=== PATIENT | female | born 1985 | race Hispanic/Latino ===

== ENCOUNTER 2018-11-10 05:55 | Day surgery (SDC) | payer BC ==
[2018-11-08 12:55] VITALS: BP 100/65
[2018-11-08 13:19] LABS: BASOPHILS % (AUTO) 0.7 % (0.0-5.0); EOSINOPHILS % (AUTO) 1.9 % (0.0-8.0); HEMATOCRIT 41.4 % (36-48); LYMPHOCYTES % (AUTO) 29.7 % (21.0-51.0); MEAN CORPUSCULAR HEMOGLOBIN 29.4 pg (27.0-33.0); MEAN CORPUSCULAR VOLUME 86.4 fL (79-99); MONOCYTES % (AUTO) 9.5 % (3.0-13.0); NEUTROPHILS % (AUTO) 58.2 % (40.0-77.0); NUCLEATED RED BLOOD CELLS 0.1 % (0.0-0.19); PLATELET COUNT (AUTO) 248 K/uL (130-400); WHITE BLOOD COUNT (AUTO) 9.2 K/uL (4.8-10.8)
[~2018-11-10] VITALS: Ht 149.9 cm; Wt 62.4 kg
[2018-11-10] VITALS (17 sets, daily range): BP systolic 89–107; BP diastolic 44–74
[2018-11-10] MEDS ORDERED: LACTATED RINGERS 1000ML 1,000 ML IV ONE (06:15)
[2018-11-10] MEDS ORDERED: CEFAZOLIN SODIUM 1 GM VIAL ONE (06:15)
[2018-11-10] MEDS ORDERED: CLINDAMYCIN 600 MG/D5% WATER 50 ML IV ONE (06:57)
[2018-11-10] MEDS ORDERED: CALDOLOR 800MG+NS 250ML 250 ML IV SCH (07:00)
[2018-11-10] MEDS ORDERED: MIDAZOLAM HCL 1 MG/ML 2ML VIAL ONE (07:06)
[2018-11-10] MEDS ORDERED: LIDOCAINE PF 2% 5ML ABBOJECT ONE (07:06)
[2018-11-10] MEDS ORDERED: DEXAMETHASONE SOD PHOSPHATE 10MG/ML 1ML VIAL ONE (07:06)
[2018-11-10] MEDS ORDERED: ONDANSETRON HCL 4 MG/2 ML VIAL ONE (07:07)
[2018-11-10] MEDS ORDERED: FENTANYL CITRATE PF 50 MCG/1 ML 2ML VIAL ONE (07:07)
[2018-11-10] MEDS ORDERED: PROPOFOL 10 MG/ML 20ML VIAL IV ONE (07:07)
[2018-11-10] MEDS ORDERED: EPHEDRINE SULFATE 50 MG/ML AMPULE ONE (07:14)
[2018-11-10] MEDS ORDERED: CEFAZOLIN SODIUM 1 GM VIAL IVP ONE (08:00)
[2018-11-10] MEDS ORDERED: LACTATED RINGERS 1000ML 1,000 ML IV SCH (08:00)
--- NOTE | 2018-11-10 09:00 | NUR ---
ASSESSMENT RECEIVED PT FROM PACU STAFF JT MENDES. PT [id number]. MARITO PAD IN PLACE WITH SCANT BLEEDING NOTED TO PAD. DENIES ANY PAIN AT THIS TIME. AT BEDSIDE.
--- NOTE | 2018-11-10 09:40 | NUR ---
DISCHARGE ORAL AND WRITTEN DISCHARGE INSTRUCTIONS GIVEN TO PT AND PTS . INSTRUCTED PT ON IMPORTANCE OF PICKING UP MEDICATIONS THAT WERE CALLED BY DR. THOMPSON, VERBALIZED UNDERSTANDING. MARITO PAD IN PLACE. NO OTHER QUESTIONS AT THIS TIME.
== END 2018-11-10 09:45 | disposition home or self-care (01) ==
LOC: DAH 05:55
PROVIDERS: ATTEND Obstetrics & Gynecology
DX: N84.0 Polyp of corpus uteri (principal); N92.1 Excessive and frequent menstruation with irregular cycle; Z88.0 Allergy status to penicillin; Z98.890 Other specified postprocedural states; Z98.51 Tubal ligation status
CPT/HCPCS: 36415; 58563; 85025; 86850; 86900; 86901; 88305; A4215; A4221; A4222; A4223; A4351; A4355; A4663; A4930; A6260; J1100; J1741; J2001; J2250; J2405; J2704; J3010; J3490 ×2; J7030 ×2; J7120; J0690